=== PATIENT | female | born 1990 | race Caucasian/White ===

== ENCOUNTER 2019-11-19 09:54 | Emergency (ER) | payer OTHER, SELFPAY ==
[2019-11-19 10:02] VITALS: BP 127/63; PULSE 78; RESP 14; TEMP 36.6; O2SAT 100
--- NOTE | 2019-11-19 10:14 | ED.GENADULT ---
HPI - General Adult General Chief complaint: Upper Respiratory Infection Stated complaint: Chest Congestion/Cough Time Seen by Provider: 11/19/19 10:15 Source: patient and RN notes reviewed Mode of arrival: ambulatory Limitations: no limitations History of Present Illness HPI narrative: This is a 29 years old female presents to the office for an evaluation of sinus congestion for five days. Associated with bilateral ears clogged, cough with runny nose. Denies fever, vomiting, or diarrhea. She tried Mucinex DM with no relief. Related Data Allergies Allergy/AdvReac Type Severity Reaction Status Date / Time No Known Allergies Allergy Verified 11/19/19 10:07 Review of Systems Review of Systems: Narrative: CONSTITUTIONAL: Denies fever, chills EYES: Denies redness, discharge. ENT: Reports rhinorrhea, congestion, sore throat CARDIOVASCULAR: Denies chest pain, palpitation RESPIRATORY: Denies dyspnea, wheezing. Reports alittle cough GASTROINTESTINAL: Denies abdominal pain, nausea, vomiting, diarrhea. GENITOURINARY: Denies urinary symptoms SKIN: Denies rash MUSCULOSKELETAL: Denies acute back pain NEUROLOGIC: Denies lightheaded PMFSH Past Medical History Medical History Anxiety and depression Asthma HSV (herpes simplex virus) infection Surgical History Surgical History History of cryosurgery Social History Social History Smoking status: Former smoker Tobacco type: cigarettes Additional smoking assessment comments: quit 06/03/18 after smoking 13 years Gender identity (if verbalized by the patient): Female Comments At time of signature, I agree with nursing past medical, surgical, social and family history. There is no relevant family history pertinent to the presenting complaint. Exam Narrative: Exam Narrative: GENERAL: This is a well-nourished, well-developed patient, in no apparent distress. EARS: External ears normal, auditory canals clear and without drainage, TMs normal without perforation. Hearing grossly intact. NOSE: External nose normal with no obvious nasal discharge, nares edematous and erythema THROAT: Mucous membranes moist, posterior pharynx pink with drainage. NECK: Neck supple, non-tender without lymphadenopathy, masses or thyromegaly. CARDIOVASCULAR: Regular rate and rhythm without murmurs, gallops, or rubs. RESPIRATORY: Clear to auscultation. Breath sounds equal bilaterally. No wheezes, rales, or rhonchi. GASTROINTESTINAL: Abdomen soft, non-tender, nondistended. Bowel sounds are active. No guarding. SKIN: warm, intact with no suspicious lesions or rash, good texture and turgor. NEURO: awake, alert, and oriented to person, place and time. There were no obvious focal neurologic abnormalities. Steady gait [place] Coma Scale Eye Opening: Spontaneous 4 [place] Coma Scale Motor: Obeys Commands 6 [place] Coma Scale Verbal: Oriented 5 Course Vital Signs Vital signs: Vital Signs Temperature 97.9 F 11/19/19 10:02 Pulse Rate 78 11/19/19 10:02 Respiratory Rate 14 11/19/19 10:02 Blood Pressure 127/63 11/19/19 10:02 Pulse Oximetry 100 11/19/19 10:02 Temperature 97.9 F 11/19/19 10:02 Pulse Rate 78 11/19/19 10:02 Respiratory Rate 14 11/19/19 10:02 Blood Pressure 127/63 11/19/19 10:02 Pulse Oximetry 100 11/19/19 10:02 Medical Decision Making MDM Narrative Medical decision making narrative: Discharge instructions reviewed with patient, as well as provided in writing per nursing staff. The instructions also include specific and strict return/GO TO THE ER as well as f/u information. All questions have been answered, and the patient deny any further questions with discharge and discharge plan. Differential Diagnosis Differential Diagnosis: pneumonia, Allergic Rhinitis, Upper respiratory cough syndr
== END 2019-11-19 10:28 | disposition home or self-care (01) ==
PROVIDERS: Emergency Provider Nurse Practitioner
DX: J32.9 Chronic sinusitis, unspecified (principal); J45.909 Unspecified asthma, uncomplicated; Z87.891 Personal history of nicotine dependence
CPT/HCPCS: 99213; G0463

== ENCOUNTER 2019-11-23 08:00 | Emergency (ER) | payer OTHER, SELFPAY ==
[2019-11-23 08:15] VITALS: BP 112/69; PULSE 80; RESP 16; TEMP 36.8; O2SAT 99
--- NOTE | 2019-11-23 08:19 | ED.URI ---
HPI - URI/Sore Throat General Chief Complaint: Upper Respiratory Infection Stated Complaint: Sinus issue Time Seen by Provider: 11/23/19 08:22 Source: patient History of Present Illness HPI Narrative: Patient presents with a 8-day history of sinus congestion and pressure. Patient was treated 4 days ago at this [facility] facility for upper respiratory infection. Patient was given prednisone Flonase and Claritin. Patient states she is not taking medication as directed and has no improvement in her symptoms. Patient denies any fever no cough no shortness of breath. Patient denies any international travel, patient denies any exposure to covid 19 and patient denies any fever. Related Data Allergies Allergy/AdvReac Type Severity Reaction Status Date / Time No Known Allergies Allergy Verified 11/23/19 08:21 Review of Systems Review of Systems: Narrative: CONSTITUTIONAL: Denies chills, or sweats. Reports fever and generalized body aches EYES: Denies visual changes, redness, or discharge. ENT: Denies otalgia. Reports nasal congestion runny nose and sore throat CARDIOVASCULAR: Denies chest pain, palpitations, or edema. RESPIRATORY: Denies dyspnea. Reports occasional cough GASTROINTESTINAL: Denies abdominal pain, nausea, vomiting, or diarrhea. GENITOURINARY: Denies dysuria or hematuria. SKIN: Denies rash or itching. MUSCULOSKELETAL: Denies back pain, joint pain, or myalgia. Reports generalized body aches NEUROLOGIC: Denies headache, numbness, or weakness. PSYCHIATRIC: Denies anxiety or depression. PMFSH Social History Social History Smoking status: Former smoker Tobacco type: cigarettes Additional smoking assessment comments: quit 06/03/18 after smoking 13 years Gender identity (if verbalized by the patient): Female Exam Narrative: Exam Narrative: GENERAL: Well-appearing, well-nourished, and in no acute distress. HEAD: Normocephalic, atraumatic. EYES: PERRLA and EOMI. ENT: Nares clear, no rhinorrhea or epistaxis. Mucous membranes moist. Mild bilateral TM dullness moderate amount of postnasal drainage no pharynx erythremia no trismus able to open mouth fully NECK: Supple. CHEST: Clear to auscultation. No respiratory distress. HEART: Regular rate and rhythm. No murmur heard. Normal peripheral pulses. ABDOMEN: Soft, nontender, nondistended, normal active bowel sounds. EXTREMITIES: Normal range of motion. No edema. SKIN: Warm, dry, no rash. NEURO: No focal deficits. Alert and oriented x3. [place] Coma Scale Eye Opening: Spontaneous 4 Laquita Coma Scale Motor: Obeys Commands 6 [place] Coma Scale Verbal: Oriented 5 [place]ita Coma Scale Total 15 Course Vital Signs Vital signs: Vital Signs Temperature 36.8 C 11/23/19 08:15 Pulse Rate 80 11/23/19 08:15 Respiratory Rate 16 11/23/19 08:15 Blood Pressure 112/69 11/23/19 08:15 Pulse Oximetry 99 11/23/19 08:15 Temperature 36.8 C 11/23/19 08:15 Pulse Rate 80 11/23/19 08:15 Respiratory Rate 16 11/23/19 08:15 Blood Pressure 112/69 11/23/19 08:15 Pulse Oximetry 99 11/23/19 08:15 Discussed current guidelines for antibiotic prescribing for sinus and postnasal drainage. Discussed with patient need to take medications as prescribed to improve her symptoms. Enforced need to use Flonase nasal spray twice daily as prescribed. Instructed patient to take dexamethasone one-time dose sent to pharmacy. Instructed patient to take Claritin daily. Instructed patient may not take prednisone if we will take the dexamethasone dose once. Patient states she would prefer to take the dexamethasone 1 dose x1 instead of taking the 5 days with the prednisone that were prescribed. Enforced need for patient to follow-up with primary care provider and take medications as prescribed. If no improvement in 5 to 7 days return for reevaluation. MDM - URI/Sore Throat Differential Diagnosis Differential diagnosis:
== END 2019-11-23 08:39 | disposition home or self-care (01) ==
PROVIDERS: Emergency Provider Nurse Practitioner Family
DX: J06.9 Acute upper respiratory infection, unspecified (principal); R09.82 Postnasal drip; Z87.891 Personal history of nicotine dependence
CPT/HCPCS: 99213; G0463

== ENCOUNTER 2019-12-21 08:03 | Emergency (ER) | payer OTHER, SELFPAY ==
[2019-12-21 08:10] VITALS: BP 128/69; PULSE 74; RESP 18; TEMP 36.8; O2SAT 100
--- NOTE | 2019-12-21 08:18 | ED.GENADULT ---
HPI - General Adult General Chief complaint: Ear Stated complaint: Ear pain/pressure Time Seen by Provider: 12/21/19 08:18 Source: patient and RN notes reviewed Limitations: no limitations History of Present Illness HPI narrative: This is a 29 years old female presents to the office for an evaluation of sinus congestion for a few weeks. This is her third visit with these complaints. States, her nasal congestion has gotten slight better; however she still have sinus drainage, ears fullness, feeling malaise with occasional cough. She does not have a fever. She is strongly believed that she has bacterial infection. Related Data Allergies Allergy/AdvReac Type Severity Reaction Status Date / Time No Known Allergies Allergy Verified 12/21/19 08:19 Review of Systems Review of Systems: Narrative: CONSTITUTIONAL: Denies fever. Reports feeling malaise ENT: Denies sore throat CARDIOVASCULAR: Denies chest pain RESPIRATORY: Denies dyspnea, wheezing GASTROINTESTINAL: Denies abdominal pain, nausea, vomiting. Reports occasional loose stools mix with diarrhea. GENITOURINARY: Denies urinary symptoms. Reports yeast infection with antibiotic SKIN: Denies rash MUSCULOSKELETAL: Denies acute back pain NEUROLOGIC: Denies lightheaded. Reports intermintent dizziness PMFSH Social History Social History Smoking status: Former smoker Tobacco type: cigarettes Additional smoking assessment comments: quit 06/03/18 after smoking 13 years Gender identity (if verbalized by the patient): Female Comments At time of signature, I agree with nursing past medical, surgical, social and family history. There is no relevant family history pertinent to the presenting complaint. Exam Narrative: Exam Narrative: GENERAL: This is a well-nourished, well-developed patient, in no apparent distress. EYES: Sclera clear/white. Vision is grossly intact. EARS: External ears normal, auditory canals clear and without drainage, fluid level noted with both TMs without perforation. Hearing grossly intact. NOSE: External nose normal with no obvious nasal discharge, nares without redness, no rhinorrhea. THROAT: Mucous membranes moist, posterior pharynx erythema with drainage NECK: Neck supple, non-tender without lymphadenopathy, masses or thyromegaly. CARDIOVASCULAR: Regular rate and rhythm without murmurs, gallops, or rubs. RESPIRATORY: Clear to auscultation. Breath sounds equal bilaterally. No wheezes, rales, or rhonchi. GASTROINTESTINAL: Abdomen soft, non-tender, nondistended. Bowel sounds are active. No hepato-splenomegaly, or palpable masses. No guarding. SKIN: warm, intact with no suspicious lesions or rash, good texture and turgor. NEURO: awake, alert, and oriented to person, place and time. There were no obvious focal neurologic abnormalities. Steady gait Laquita Coma Scale Eye Opening: Spontaneous 4 [place]ita Coma Scale Motor: Obeys Commands 6 [place] Coma Scale Verbal: Oriented 5 Course Vital Signs Vital signs: Vital Signs Temperature 98.2 F 12/21/19 08:10 Pulse Rate 74 12/21/19 08:10 Respiratory Rate 18 12/21/19 08:10 Blood Pressure 128/69 12/21/19 08:10 Pulse Oximetry 100 12/21/19 08:10 Temperature 98.2 F 12/21/19 08:10 Pulse Rate 74 12/21/19 08:10 Respiratory Rate 18 12/21/19 08:10 Blood Pressure 128/69 12/21/19 08:10 Pulse Oximetry 100 12/21/19 08:10 Medical Decision Making MDM Narrative Medical decision making narrative: Discharge instructions reviewed with patient, as well as provided in writing per nursing staff. The instructions also include specific and strict return/GO TO THE ER as well as f/u information. All questions have been answered, and the patient deny any further questions with discharge and discharge plan. Differential Diagnosis Differential Diagnosis: Allergic Rhinitis, Upper respiratory cough syndrome, Pharyngitis, Sinusitis, Bronchitis,
== END 2019-12-21 08:45 | disposition home or self-care (01) ==
PROVIDERS: Emergency Provider Nurse Practitioner
DX: J06.9 Acute upper respiratory infection, unspecified (principal); R05 Cough; B37.3 Candidiasis of vulva and vagina; T36.95XA Adverse effect of unspecified systemic antibiotic, initial encounter; Z87.891 Personal history of nicotine dependence
CPT/HCPCS: 99213; G0463

== ENCOUNTER 2020-02-10 09:27 | Emergency (ER) | payer OTHER, SELFPAY ==
[2020-02-10 09:35] VITALS: BP 115/63; PULSE 74; RESP 20; TEMP 36.8; O2SAT 100
--- NOTE | 2020-02-10 09:39 | ED.GENADULT ---
HPI - General Adult General Chief complaint: Anxiety Stated complaint: light headed Time Seen by Provider: 02/10/20 09:39 Source: patient and RN notes reviewed Mode of arrival: ambulatory Limitations: no limitations History of Present Illness HPI narrative: This is a 29 years old female presents to the office for an anxiety relate to wearing a mask at work. She stated that she cannot tolerate the mask in this weather conditions. 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 She said that she did not have a problem in November or December because the weather was much cooler. She strongly thinks the mask causes her anxiety to flare which was the reason why she felt constricted in her chest and lightheaded. She went in as her boss to excuse her from wearing a mask at work however she was told that she needed to have a letter from a physician before they can excuse her. She stated that her asthma and anxiety usually are well controlled without any medications as long as she is not physically or emotionally stress-out. Related Data Allergies Allergy/AdvReac Type Severity Reaction Status Date / Time No Known Allergies Allergy Verified 02/10/20 09:40 Review of Systems Review of Systems: Narrative: CONSTITUTIONAL: Denies feeling ill unless she wears a mask. ENT: Denies congestion CARDIOVASCULAR: Denies chest pain, palpitation RESPIRATORY: Denies dyspnea, wheezing, cough GASTROINTESTINAL: Denies abdominal pain, nausea, vomiting SKIN: Denies rash MUSCULOSKELETAL: Denies acute back pain NEUROLOGIC: Denies lightheaded (unless she wears a mask) [facility] Past Medical History Medical History Anxiety and depression Asthma HSV (herpes simplex virus) infection Surgical History Surgical History History of cryosurgery Social History Social History Smoking status: Former smoker Tobacco type: cigarettes Additional smoking assessment comments: quit 06/03/18 after smoking 13 years Gender identity (if verbalized by the patient): Female Comments At time of signature, I agree with nursing past medical, surgical, social and family history. There is no relevant family history pertinent to the presenting complaint. Exam Narrative: Exam Narrative: GENERAL: This is a well-nourished, well-developed patient, in no apparent distress. EYES: PERRL. Sclera clear/white. Vision is grossly intact. EARS: External ears normal, auditory canals clear and without drainage, TMs normal without perforation. Hearing grossly intact. NOSE: External nose normal with no obvious nasal discharge, nares without redness, no rhinorrhea. THROAT: Mucous membranes moist, posterior pharynx clear. NECK: Neck supple, non-tender without lymphadenopathy, masses or thyromegaly. CARDIOVASCULAR: Regular rate and rhythm without murmurs, gallops, or rubs. RESPIRATORY: Clear to auscultation. Breath sounds equal bilaterally. No wheezes, rales, or rhonchi. GASTROINTESTINAL: Abdomen soft, non-tender, nondistended. Bowel sounds are active. No guarding. SKIN: warm, intact with no suspicious lesions or rash, good texture and turgor. NEURO: awake, alert, and oriented to person, place and time. There were no obvious focal neurologic abnormalities. Steady gait EXTREMITIES: Normal range of motion. No edema. Laquita Coma Scale Eye Opening: Spontaneous 4 [place] Coma Scale Motor: Obeys Commands 6 [place] Coma Scale Verbal: Oriented 5 Course Vital Signs Vital signs: Vital Signs Temperature 98.3 F 02/10/20 09:35 Pulse Rate 74 02/10/20 09:35 Respiratory Rate 20 02/10/20 09:35 Blood Pressure 115/63 02/10/20 09:35 Pulse Oximetry 100 02/10/20 09:35 Temperature 98.3 F 02/10/20 09:35 Pulse Rate 74 02/10/20 09:35 Respiratory Rate 20 02/10/20 09:35 Blood
== END 2020-02-10 09:50 | disposition home or self-care (01) ==
PROVIDERS: Emergency Provider Nurse Practitioner
DX: F41.9 Anxiety disorder, unspecified (principal); J45.909 Unspecified asthma, uncomplicated; Z87.891 Personal history of nicotine dependence
CPT/HCPCS: 99211; G0463

== ENCOUNTER 2020-04-18 11:10 | Emergency (ER) | payer OTHER, SELFPAY ==
[2020-04-18 11:24] VITALS: BP 128/74; PULSE 80; RESP 16; TEMP 36.9; O2SAT 100
--- NOTE | 2020-04-18 11:41 | ED.FEMALEGU ---
HPI - Female Genitourinary General Chief complaint: Urogenital-Female Stated complaint: Urogenital-female Time Seen by Provider: 04/18/20 11:39 Source: patient and RN notes reviewed Mode of arrival: ambulatory Limitations: no limitations History of Present Illness HPI Narrative: 29-year-old female presents with concern for dysuria, uterine cramping for approximately 1 week. Reports unprotected sex with new sexual partner, she is concern for exposure to STDs. Reports having gonorrhea in the past, reports the symptoms are similar. She denies any abnormal vaginal discharge, abdominal pain, fever, pain with sex, body aches, chills. Denies any intervention. Reports her last menstrual period ended on April 08 MD elicited complaint: dysuria Related Data Home Medications Medication Instructions Recorded Confirmed acyclovir 400 mg PO DAILY 04/18/20 04/18/20 Allergies Allergy/AdvReac Type Severity Reaction Status Date / Time No Known Allergies Allergy Verified 04/18/20 11:24 Review of Systems Review of Systems: Narrative: CONSTITUTIONAL: Denies malaise, chills, sweats, or fever. CARDIOVASCULAR: Denies chest pain, palpitations RESPIRATORY: Denies cough or dyspnea. GASTROINTESTINAL: Denies abdominal pain, nausea, vomiting, diarrhea, bloody, or mucous stools. GENITOURINARY: Reports dysuria uterine cramping. Denies flank pain, urgency, frequency, or hematuria. SKIN: Denies rash or itching. MUSCULOSKELETAL: Denies myalgia. NEUROLOGIC: Denies headache. All systems reviewed & are unremarkable except as noted in HPI and below PMFSH Social History Social History Smoking status: Former smoker Tobacco type: cigarettes Additional smoking assessment comments: quit 06/03/18 after smoking 13 years Gender identity (if verbalized by the patient): Female Comments At time of signature, agree with nursing past medical, surgical, social and family history. There is no relevant family history pertinent to the presenting complaint Exam Narrative: Exam Narrative: GENERAL: Well-appearing, well-nourished, and in no acute distress. HEAD: Normocephalic. EYES: PERRLA, conjunctivae clear. NECK: Supple. No lymphadenopathy CHEST: Clear to auscultation. No respiratory distress. HEART: Regular rate and rhythm. No murmur heard. Normal peripheral pulses. ABDOMEN: Soft, nontender upon palpation, nondistended, normal active bowel sounds, no palpable or pulsatile masses, no guarding. No CVA tenderness SKIN: Warm, dry, no rash. NEURO: Alert and oriented x3. PSYCH: Normal mood and affect Course Course Emergency Course: Patient is aware of diagnosis, understands and agrees to treatment plan. Anticipatory guidance given. Patient agrees to follow-up as directed and is aware of reasons to seek care at the emergency department. Portions of this record may have been created with voice recognition software Vital Signs Vital signs: Vital Signs Temperature 98.4 F 04/18/20 11:24 Pulse Rate 80 04/18/20 11:24 Respiratory Rate 16 04/18/20 11:24 Blood Pressure 128/74 04/18/20 11:24 Pulse Oximetry 100 04/18/20 11:24 Temperature 98.4 F 04/18/20 11:24 Pulse Rate 80 04/18/20 11:24 Respiratory Rate 16 04/18/20 11:24 Blood Pressure 128/74 04/18/20 11:24 Pulse Oximetry 100 04/18/20 11:24 Reviewed. MDM - Female Genitourinary MDM Narrative Medical decision making narrative: Exam findings show no acute concerns or changes; patient is non-toxic appearing and is in no distress. Patient is appropriate for outpatient treatment and follow-up. Differential Diagnosis Differential diagnosis: Likely urinary tract infection, bacterial vaginosis, trichomoniasis, vaginitis and cystitis Lab Data Attestation: I reviewed the patient's lab results. Labs: Urine Glucose Negative Reference Range: Negative Urine Bilirubin Negative Reference Ran
--- NOTE | 2020-04-18 11:53 | PC.NURSE ---
NO UC ORDERED PER DELICIA
[2020-04-18] MEDS: AZITHROMYCIN 250 MG TABLET 1000 MG PO (11:56)
[2020-04-18] MEDS: cefTRIAXone 250 MG VIAL IM (12:05)
[2020-04-18] MEDS: LIDOCAINE HCL 1% LOCAL INJ 20 ML VIAL INFILTRATE (12:05)
== END 2020-04-18 12:35 | disposition home or self-care (01) ==
PROVIDERS: Emergency Provider Nurse Practitioner
DX: R30.0 Dysuria (principal); Z87.891 Personal history of nicotine dependence; J45.909 Unspecified asthma, uncomplicated
CPT/HCPCS: 81003; 87491; 87591; 87661; 96372; 99214; A9270; G0463; J0696

== ENCOUNTER 2022-12-23 15:01 | Emergency (ER) | payer OTHER, MEDICAID, SELFPAY ==
[2022-12-23 15:10] VITALS: BP 128/72; PULSE 78; RESP 16; TEMP 36.7; O2SAT 100
--- NOTE | 2022-12-23 15:24 | ED.FEMALEGU ---
HPI - Female Genitourinary General Chief complaint: Urogenital-Female Stated complaint: poss uti Time Seen by Provider: 12/23/22 15:15 Source: patient, RN notes reviewed and old records reviewed Mode of arrival: ambulatory Limitations: no limitations History of Present Illness HPI Narrative: 32 year old female who presents to express care with complaints of pain to her lower perineal region with voiding starting yesterday with burning with urination. Patient reports that she moved over the weekend and did not drink fluids well was so busy, noticed foul smelling urine Thursday morning.Patient reports that she took some cranberry pills and has increased her oral fluid intake. Patient reports that she has no vaginal discharge or any itching or any concern for STD exposure. MD elicited complaint: UTI Onset (ago): day(s) (since yesterday) Severity scale (1-10): 4 Vaginal discharge: none Date of Last Menstrual Period: 12/14/22 Related Data Home Medications Medication Instructions Recorded Confirmed acyclovir 400 mg tablet 400 mg PO DAILY 04/18/20 04/18/20 Allergies Allergy/AdvReac Type Severity Reaction Status Date / Time No Known Allergies Allergy Verified 04/18/20 11:24 Review of Systems Review of Systems: CONSTITUTIONAL: Denies fever, chills, or sweats. CARDIOVASCULAR: Denies chest pain, palpitations, or edema. RESPIRATORY: Denies cough or dyspnea. GASTROINTESTINAL: Denies abdominal pain, nausea, vomiting, or diarrhea. GENITOURINARY: Reports dysuria, frequency, urgency. Denies flank pain or hematuria. SKIN: Denies rash or itching. MUSCULOSKELETAL: Denies back pain or myalgia. Denies CVA tenderness NEUROLOGIC: Denies headache All systems reviewed & are unremarkable except as noted in HPI and below PMFSH Past Medical History Medical History (Updated 12/25/22 @ 08:24 by Sudha Roth NP) Anxiety and depression Asthma HSV (herpes simplex virus) infection Surgical History Surgical History History of cryosurgery Social History Social History Smoking status: Former smoker Tobacco type: cigarettes Additional smoking assessment comments: quit 06/03/18 after smoking 13 years Living arrangements: with family Gender identity (if verbalized by the patient): Female Comments At time of signature, agree with nursing past medical, surgical, social and family history. There is no relevant family history pertinent to the presenting complaint Exam Narrative: GENERAL: Well-appearing, well-nourished, and in no acute distress. HEAD: Normocephalic, atraumatic. NECK: Supple. no lymphadenopathy CHEST: Clear to auscultation. No respiratory distress. HEART: Regular rate and rhythm. No murmur heard. Normal peripheral pulses. ABDOMEN: Soft, nontender to palpation, nondistended, normal active bowel sounds. No CVA tenderness, perineal discomfort with urgency, frequency and dysuria EXTREMITIES: Normal range of motion. No edema. SKIN: Warm, dry, no rash. NEURO: No focal deficits. Alert and oriented x3. Course Course Emergency Course: Patient is aware of diagnosis, understands and agrees to treatment plan.? Anticipatory guidance given.? Patient agrees to follow-up as directed and is aware of reasons to seek care at the emergency department. Portions of this record may have been created with voice recognition software Level of Care: Express Care Visit Vital Signs Vital signs: Vital Signs Temperature 36.7 C 12/23/22 15:10 Pulse Rate 78 12/23/22 15:10 Respiratory Rate 16 12/23/22 15:10 Blood Pressure 128/72 12/23/22 15:10 Pulse Oximetry 100 12/23/22 15:10 Oxygen Delivery Room Air 12/23/22 15:10 Temperature 36.7 C 12/23/22 15:10 Pulse Rate 78 12/23/22 15:10 Respiratory Rate 16 12/23/22 15:10 Blood Pressure 128/72 12/23/22 15:10 Pulse Oximetry 100 12/23/22 15:10 Oxygen D
== END 2022-12-23 15:46 | disposition home or self-care (01) ==
PROVIDERS: Emergency Provider Registered Nurse; PCP Family Medicine
DX: N39.0 Urinary tract infection, site not specified (principal); J45.909 Unspecified asthma, uncomplicated; Z87.891 Personal history of nicotine dependence
CPT/HCPCS: 81003; 87077; 87086; 87186; 99213; G0463

== ENCOUNTER 2023-08-07 12:33 | Emergency (ER) | payer OTHER, SELFPAY ==
[2023-08-07 12:39] VITALS: BP 126/67; PULSE 86; RESP 16; TEMP 37.2; O2SAT 100
--- NOTE | 2023-08-07 12:46 | ED.EYEPROB ---
HPI - Eye Problem General Chief complaint: Eye Problems Stated complaint: Left Eye Problem Time Seen by Provider: 08/07/23 12:40 Source: patient Mode of arrival: ambulatory Limitations: no limitations History of Present Illness HPI Narrative: Katelyn is a 32-year-old female patient presenting to the clinic today with complaints of a possible stye in the left upper eyelid. She reports that this been going on for about 1-2 days. Is having pain to the left upper eyelid. Has had history of styes in the past. Denies any visual changes. Related Data Allergies Allergy/AdvReac Type Severity Reaction Status Date / Time No Known Allergies Allergy Verified 04/18/20 11:24 Review of Systems Review of Systems: Pertinent positives per HPI. Patient denies any fever, chills, rash, headache, visual changes, dizziness, cough, runny nose, sore throat, shortness of breath, chest pain, palpitations, nausea, vomiting, diarrhea, constipation, abdominal pain, or any urinary issues. PMFSH Past Medical History Medical History Anxiety and depression Asthma HSV (herpes simplex virus) infection Surgical History Surgical History History of cryosurgery Social History Social History Smoking status: Former smoker Tobacco type: cigarettes Additional smoking assessment comments: quit 06/03/18 after smoking 13 years Living arrangements: with family Gender identity (if verbalized by the patient): Female Comments At the time of my signature, I reviewed and agree with the nursing past medical, surgical, social, and family history. There is no relevant family history pertinent to the patient complaint. Exam Narrative: General: Well-developed, well nourished, in no apparent distress Head: Normocephalic, atraumatic Eyes: Pupils equally round and reactive to light bilaterally, EOM intact, sclera and conjunctive clear, no discharge, right lids normal, left lateral upper lid swollen and red with tenderness to palpation, pustule noted to the Internal upper lateral eyelid Ears: TMs intact and clear, ear canals clear, no drainage, grossly hearing normal. Nose: Nares patent, no discharge, no inflammation, no sinus tenderness. Mouth: Oropharynx without lesions or masses, good dentition, MMM. Neck: Supple, trachea midline, no enlargement of anterior or posterior cervical nodes, no thyroid masses or goiter palpable. Cardio: Regular rate and rhythm, s1 and s2 normal, no murmur appreciated. Resp: Clear to auscultation bilaterally anteriorly and posteriorly, no rhonchi, rales, wheezing or rubs Course Course Emergency Course: Portions of this record may have been created with voice recognition software. Level of Care: Express Care Visit Vital Signs Vital signs: Vital Signs Temperature 37.2 C 08/07/23 12:39 Pulse Rate 86 08/07/23 12:39 Respiratory Rate 16 08/07/23 12:39 Blood Pressure 126/67 08/07/23 12:39 Pulse Oximetry 100 08/07/23 12:39 Oxygen Delivery Room Air 08/07/23 12:39 Temperature 37.2 C 08/07/23 12:39 Pulse Rate 86 08/07/23 12:39 Respiratory Rate 16 08/07/23 12:39 Blood Pressure 126/67 08/07/23 12:39 Pulse Oximetry 100 08/07/23 12:39 Oxygen Delivery Room Air 08/07/23 12:39 Vital signs reviewed MDM - Eye Problem MDM Narrative Medical decision making narrative: At the time of visit patient is resting comfortably on exam table. I suspect she has a internal stye to the left lateral upper eye lid. Prescriptions for polymyxin an eyedrops was sent to the pharmacy and supportive measures were discussed with the patient she voiced understanding discharge instructions and agrees to treatment plan. Return precautions were reviewed Differential Diagnosis Differential diagnosis: Likely corneal abrasion, conju
== END 2023-08-07 12:51 | disposition home or self-care (01) ==
PROVIDERS: Emergency Provider Nurse Practitioner Family
DX: H00.024 Hordeolum internum left upper eyelid (principal); Z87.891 Personal history of nicotine dependence; J45.909 Unspecified asthma, uncomplicated
CPT/HCPCS: 99213; G0463

== ENCOUNTER 2023-09-17 10:49 | Emergency (ER) | payer OTHER, SELFPAY ==
[2023-09-17 10:54] VITALS: BP 102/70; PULSE 97; RESP 16; TEMP 36.8; O2SAT 100
--- NOTE | 2023-09-17 11:08 | ED.GENADULT ---
HPI - General Adult General Chief complaint: Upper Respiratory Infection Stated complaint: congestion/fever Source: patient, RN notes reviewed and old records reviewed Mode of arrival: ambulatory Limitations: no limitations History of Present Illness HPI narrative: 32-year-old female presents to [facility] with complaints fatigue, myalgia, sinus congestion, rhinorrhea, cough that started late Thursday evening. Patient is not taking anything for symptoms. Patient denies weakness, dizziness, chest pain, shortness of breath MD complaint: , congestion Onset (ago): day(s) (1-2) Related Data Allergies Allergy/AdvReac Type Severity Reaction Status Date / Time No Known Allergies Allergy Verified 04/18/20 11:24 Review of Systems Constitutional: Constitutional: Reports no additional constitutional complaints, Reports body ache(s), Denies chills, Reports fatigue, Denies fever(s) and Denies headache(s) Eyes: Eyes: Reports no additional eye complaints and Denies blurry vision ENT: Reports system reviewed and no additional complaints, except as documented, Denies vertigo, Denies dizziness, Denies ear discharge, Denies otalgia, Denies facial pain, Denies headache(s), Reports nasal congestion, Reports nasal discharge, Reports sinus pressure and Denies sore throat Cardiovascular: Cardiovascular: Reports no additional cardiovascular complaints, Denies chest pain, Denies chest pain at rest, Denies rapid heart rate and Denies dyspnea Respiratory: Respiratory: Reports no additional respiratory complaints, Denies chest congestion, Reports cough, Denies pain on inspiration, Denies pain with cough and Denies dyspnea Gastrointestinal: Gastrointestinal: Denies abdominal pain, Denies diarrhea, Denies nausea and Denies vomiting Integumentary/Breasts: Skin/Breast: Denies rash Neurologic: Reports system reviewed and no additional complaints, except as documented, Denies vertigo, Denies dizziness and Denies headache(s) Endocrine: Endocrine: Denies fatigue PMFSH Past Medical History Medical History (Updated 09/17/23 @ 11:11 by Irais Munson APRN) Anxiety and depression Asthma HSV (herpes simplex virus) infection Surgical History Surgical History History of cryosurgery Social History Social History Smoking status: Former smoker Tobacco type: cigarettes Additional smoking assessment comments: quit 06/03/18 after smoking 13 years Living arrangements: with family Gender identity (if verbalized by the patient): Female Comments At the time of my signature, I reviewed and agree with the nursing past medical, surgical, social, and family history. There is no relevant family history pertinent to the patient complaint. Exam Const: General: cooperative, healthy appearing, no acute distress and well nourished Nutritional Appearance: well nourished Orientation/consciousness: patient oriented x3 Limitations: no limitations HENMT: Head: normal to inspection and normocephalic Ears: external ears normal, TM's normal bilaterally, mastoids normal and Abnormal EAC present Face/Nose/Sinus: normal facial exam Face and sinus: normal facial exam Mouth: Yes Normal oral and palatal mucosa present, Yes oropharynx normal and Yes moist mucous membranes Throat: tonsils normal, uvula midline, posterior oropharynx abnormal erythema and no uvular edema Eyes: General: appearance normal, both eyes and all related structures Sclera: sclerae normal Pupils: Equal, round and reactive pupils present Resp: Effort & Inspection: normal respiratory effort, able to speak in complete sentences, no audible wheezes, no cough, no respiratory distress and no retractions Auscultation: clear to auscultation bilaterally, no crackles, no rales, no rhonchi and no wheezes Cardio: Rate: regular rate Rhythm: regular rhythm Skin: General skin exam: normal color a
== END 2023-09-17 11:17 | disposition home or self-care (01) ==
PROVIDERS: Emergency Provider Registered Nurse
DX: U07.1 COVID-19 (principal); Z87.891 Personal history of nicotine dependence; J45.909 Unspecified asthma, uncomplicated
CPT/HCPCS: 87426; 87804; 99213; G0463

== ENCOUNTER 2024-04-27 10:20 | Emergency (ER) | payer BC, SELFPAY ==
[2024-04-27 10:25] VITALS: BP 129/54; PULSE 75; RESP 18; TEMP 37.8; O2SAT 100
--- NOTE | 2024-04-27 10:39 | ED.URI ---
HPI - URI/Sore Throat General Chief Complaint: Upper Respiratory Infection Stated Complaint: Sore Throat Time Seen by Provider: 04/27/24 10:39 Source: patient Mode of arrival: ambulatory Limitations: no limitations History of Present Illness HPI Narrative: 33-year-old female presents with complaint of sore throat, exudates, headache, fatigue, chills starting this morning. Reports history of recurrent strep throat. All systems reviewed and negative except as noted above. Related Data Allergies Allergy/AdvReac Type Severity Reaction Status Date / Time No Known Allergies Allergy Verified 04/27/24 10:34 Review of Systems Review of Systems: CONSTITUTIONAL: Denies fever. Reports chills, or sweats. EYES: Denies visual changes, redness, or discharge. ENT: Denies rhinorrhea, congestion. Reports sore throat. Denies otalgia. CARDIOVASCULAR: Denies chest pain, palpitations, or edema. RESPIRATORY: Denies cough or dyspnea. GASTROINTESTINAL: Denies abdominal pain, nausea, vomiting, or diarrhea. GENITOURINARY: Denies dysuria or hematuria. SKIN: Denies rash or itching. MUSCULOSKELETAL: Denies back pain, joint pain, or myalgia. NEUROLOGIC: Reports headache. Denies numbness, or weakness. PSYCHIATRIC: Denies anxiety or depression. All other systems reviewed are negative, except as documented in HPI. [facility] Past Medical History Medical History (Updated 04/27/24 @ 10:44 by Tiffany Méndez NP) Anxiety and depression Asthma HSV (herpes simplex virus) infection Surgical History Surgical History History of cryosurgery Social History Social History Smoking status: Former smoker Tobacco type: cigarettes Additional smoking assessment comments: quit 06/03/18 after smoking 13 years Living arrangements: with family Gender identity (if verbalized by the patient): Female Comments At time of signature, agree with nursing past medical, surgical, social and family history. There is no relevant family history pertinent to the presenting complaint. Exam Narrative: GENERAL: This is a well-nourished, well-developed patient, ill-appearing but in no acute distress HEAD: normocephalic, atraumatic. EYES: PERRL. Sclera clear/white. Vision is grossly intact. EARS: External ears normal, auditory canals clear and without drainage, TM s normal without perforation. Hearing grossly intact. NOSE: External nose normal with no obvious nasal discharge, nares without redness, no rhinorrhea. THROAT: Mucous membranes moist, erythematous tonsils 2+ bilaterally with exudates NECK: Neck supple, non-tender without lymphadenopathy, masses or thyromegaly. CARDIOVASCULAR: Regular rate and rhythm without murmurs, gallops, or rubs. RESPIRATORY: Clear to auscultation. Breath sounds equal bilaterally. No wheezes, rales, or rhonchi. SKIN: warm, Dry, intact with no suspicious lesions or rash, good texture and turgor. NEURO: awake, alert, and oriented to person, place and time. There were no obvious focal neurologic abnormalities. EXTREMITIES: No joint tenderness, effusion, or edema noted. Course Course Level of Care: Express Care Visit Vital Signs Vital signs: Vital Signs Temperature 37.8 C H 04/27/24 10:25 Pulse Rate 75 04/27/24 10:25 Respiratory Rate 18 04/27/24 10:25 Blood Pressure 129/54 L 04/27/24 10:25 Pulse Oximetry 100 04/27/24 10:25 Oxygen Delivery Room Air 04/27/24 10:25 Temperature 37.8 C H 04/27/24 10:25 Pulse Rate 75 04/27/24 10:25 Respiratory Rate 18 04/27/24 10:25 Blood Pressure 129/54 L 04/27/24 10:25 Pulse Oximetry 100 04/27/24 10:25 Oxygen Delivery Room Air 04/27/24 10:25 Reviewed MDM - URI/Sore Throat MDM Narrative Medical decision making narrative: Patient is aware of diagnosis, understands and agrees to treatment plan. Anticipatory guidance given. Yunior
[2024-04-27 10:46] LABS: EDSTREPNEGPOS1 Negative
== END 2024-04-27 10:48 | disposition home or self-care (01) ==
PROVIDERS: Emergency Provider Nurse Practitioner Family
DX: J03.90 Acute tonsillitis, unspecified (principal); J45.909 Unspecified asthma, uncomplicated; Z87.891 Personal history of nicotine dependence
CPT/HCPCS: 87081; 87880; 99213; G0463